=== PATIENT | female | born 1970 | race Caucasian/White ===

== ENCOUNTER → 2019-08-17 | Outpatient (CLI) | payer OTHER ==
--- NOTE | 2019-08-17 19:24 | REP ---
Left knee five views: There is a large mottled calcification within the medullary canal of the distal femoral shaft compatible with enchondroma or bone infarct. Mineralization and joint spaces otherwise are unremarkable. The patellofemoral joint space is symmetric and unremarkable. There is no joint effusion. No fracture or dislocation. No calcifications or foreign bodies. Impression: Essentially negative left knee except for a large mottled calcified lesion in the distal femoral shaft compatible with enchondroma or bone infarct. The patellofemoral joint is unremarkable. Electronically Signed by Moose Mccarthy MD 08/17/2019 07:15 P
== END ==
LOC: M WUC 18:17
PROVIDERS: ATTEND Physician Assistant
DX: M22.2X2 Patellofemoral disorders, left knee (principal)

== ENCOUNTER 2020-08-11 21:26 | Emergency (ER) | payer OTHER ==
[~2020-08-11] VITALS: Ht 172.7 cm; Wt 100.0 kg
[2020-08-11] MEDS ORDERED: LISI-538 PO (21:33)
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
[2020-08-11] MEDS ORDERED: BOOSTRIX/ADACEL VACCINE (DIPHTH/PERTUSS/ACELL/TETANUS) 0.5ML SYR IM ONE (23:00)
[2020-08-11 23:14] VITALS: BP 170/90
== END 2020-08-11 23:16 | disposition home or self-care (01) ==
LOC: EDSEX 21:26 → M ED 21:26
DX: S01.01XA Laceration without foreign body of scalp, initial encounter (principal); T14.8XXA Other injury of unspecified body region, initial encounter; W22.8XXA Striking against or struck by other objects, initial encounter; Y92.018 Other place in single-family (private) house as the place of occurrence of the external cause; I10 Essential (primary) hypertension; Z79.899 Other long term (current) drug therapy